=== PATIENT | male | born 1965 | race Caucasian/White ===

== ENCOUNTER 2016-03-23 17:14 | Emergency (ER) | payer MEDICAID ==
[~2016-03-23] VITALS: Ht 177.8 cm; Wt 68.0 kg
[2016-03-23 17:15] VITALS: BP 142/85; PULSE 74; RESP 18; TEMP 97.6; O2SAT 96
--- NOTE | 2016-03-23 17:15 | NUR ---
Patient triaged and placed in waiting room. VSS and patient appears in no acute distress at this time. Accompanied by SELF, awaiting available bed, and MD notified of need for MSE.
--- NOTE | 2016-03-23 17:20 | NUR ---
Pt brought by self, A&Ox4, pt c/o R upper tooth pain 09/17 since today, skin pink and warm, cap refill <3,VSS.
--- NOTE | 2016-03-23 17:25 | NUR ---
Mirna Stone VOICE AND DATA TECHNICIAN at bedside examining patient
[2016-03-23] MEDS ORDERED: HYDROcodone/ACETAMIN 7.5-325 MG TAB PO ONE (17:45)
[2016-03-23] MEDS ORDERED: CEPHALEXIN 500 MG CAPSULE PO ONE (17:45)
[2016-03-23 18:30] VITALS: BP 142/85; PULSE 74; RESP 18; TEMP 97.6; O2SAT 96
--- NOTE | 2016-03-23 18:30 | NUR ---
Patient given written and verbal discharge instructions and verbalizes understanding. ER MD discussed with patient the results and treatment provided. Given copies of tests performed in ER. Patient in stable condition. ID arm band removed. Rx of Tramadol, Motrin and Keflex given. Patient educated on pain management and to follow up with PMD. Pain Scale 0/10 . Opportunity for questions provided and answered.
== END 2016-03-23 18:30 | disposition home or self-care (01) ==
LOC: SED 17:14
DX: K08.89 Other specified disorders of teeth and supporting structures (principal); K50.90 Crohn's disease, unspecified, without complications
CPT/HCPCS: 99283

== ENCOUNTER 2016-07-04 05:42 | Emergency (ER) | payer MEDICAID ==
[~2016-07-04] VITALS: Ht 177.8 cm; Wt 68.0 kg
[2016-07-04 06:00] VITALS: BP_SYST 135
--- NOTE | 2016-07-04 06:00 | NUR ---
Placed in room 05 . Placed on air chief marshal, blood pressure machine and pulse oximeter. To gown for exam. Side rails up. Care assumed.
--- NOTE | 2016-07-04 06:05 | NUR ---
ER at bedside examining patient.
--- NOTE | 2016-07-04 06:05 | NUR ---
Patient AAO x4, sitting in bed, c/o right shoulder pain status post fall from tripping over dog yesterday, patient states pain is 6/10 but does not want any pain medications at this time. Denies hit to head, denies knock out, no acute distress noted. Will continue to monitor.
--- NOTE | 2016-07-04 06:18 | NUR ---
Patient to radiology with technology architect via wheelchair.
--- NOTE | 2016-07-04 06:30 | NUR ---
Patient returned from radiology.
--- NOTE | 2016-07-04 06:41 | NUR ---
Patient resting in bed, no acute distress noted. Will continue to monitor.
--- NOTE | 2016-07-04 06:50 | NUR ---
Sling given to patient, instructions and care given with return demonstration for application performed by patient.
[2016-07-04 06:58] VITALS: BP_SYST 130
--- NOTE | 2016-07-04 06:58 | NUR ---
Patient given written and verbal discharge instructions and verbalizes understanding. ER MD discussed with patient the results and treatment provided. Patient in stable condition. ID arm band removed. Rx of Hixson and cyclobenazeprine given. Patient educated on pain management and to follow up with PMD. Pain Scale 0/10 .Opportunity for questions provided and answered.
== END 2016-07-04 06:58 | disposition home or self-care (01) ==
LOC: SED 05:42
DX: S40.011A Contusion of right shoulder, initial encounter (principal); W01.0XXA Fall on same level from slipping, tripping and stumbling without subsequent striking against object, initial encounter; Y93.89 Activity, other specified; Y92.89 Other specified places as the place of occurrence of the external cause; Y99.8 Other external cause status
CPT/HCPCS: 73030; 99284